=== PATIENT | male | born 1965 | race Caucasian/White ===

== ENCOUNTER → 2022-02-24 12:06 | Outpatient (CLI) | payer BC, SELFPAY ==
--- NOTE | 2022-02-24 12:32 | XR_ITS ---
PROCEDURE INFORMATION: Exam: XR Chest Exam date and time: 02/24/2022 12:25 PM Age: 56 years old Clinical indication: Shortness of breath; Additional info: SOB TECHNIQUE: Imaging protocol: XR of the chest. Views: 2 views. COMPARISON: No relevant prior studies available. FINDINGS: Lungs: Mild pulmonary hyperinflation. No pulmonary consolidation. Pulmonary vessels do not appear significantly congested. Pleural spaces: Unremarkable. No significant pleural effusion. No pneumothorax. Heart/Mediastinum: The cardiac silhouette is normal. Bones/joints: There are spinal degenerative changes, with multilevel disc narrrowing and spondylosis. Soft tissues: Overlying clothing artifacts. No acute findings in the soft tissues. IMPRESSION: 1. Mild pulmonary hyperinflation. 2. No pulmonary consolidation, or other acute findings.
== END ==
PROVIDERS: PCP Nurse Practitioner Family; Visit Provider Nurse Practitioner Family
DX: R06.00 Dyspnea, unspecified (principal)
CPT/HCPCS: 71046